=== PATIENT | male | born 1935 | race Hispanic/Latino ===

== ENCOUNTER → 2023-01-29 | Day surgery (SDC) | payer MEDICARE, OTHER ==
[2023-01-22 09:50] LABS: BASOPHILS # (AUTO) 0.1 (0.0-0.1); BASOPHILS % 0.6 % (0.0-1.0); EOSINOPHILS # (AUTO) 0.1 (0.0-0.4); EOSINOPHILS % 1.6 % (0.0-6.0); HEMATOCRIT 42.7 % (38.2-49.6); HEMOGLOBIN 13.8 g/dL (14.0-18.0); LYMPHOCYTES # (AUTO) 1.8 (1.0-3.2); LYMPHOCYTES % 21.5 % (18.0-39.1); MEAN CORPUSCULAR HEMOGLOBIN 30.3 pg (28-32); MEAN CORPUSCULAR HGB CONC 32.3 g/dL (31-35); MEAN CORPUSCULAR VOLUME 93.6 fL (81-99); MONOCYTES # (AUTO) 0.9 (0.2-0.8); MONOCYTES % 10.4 % (4.4-11.3); NEUTROPHILS # (AUTO) 5.4 (2.1-6.9); NEUTROPHILS % 65.5 % (38.7-80.0); PLATELET COUNT 322 x10e3/uL (140-360); RED BLOOD COUNT 4.56 x10e6/uL (4.3-5.7); RED CELL DISTRIBUTION WIDTH 14.2 % (11.7-14.4)
[~2023-01-29] MED LIST: FAMOTIDINE20 MG PO; FINASTERIDE5 MG PO; GABAPENTIN300 MG PO; LACTATED RINGER'S 1,000 ML ONE; METFORMIN HCL500 MG PO; ZENPEP DR 15,01 EACH PO; ZENPEP DR 25,01 EAC1 PO; ZESTRIL10 MG PO
[2023-01-29 08:34] VITALS: TEMP 97
[2023-01-29 09:00] VITALS: BP 131/88; PULSE 83; RESP 18; O2SAT 99
== END | disposition home or self-care (01) ==
LOC: OR 08:21
PROVIDERS: ATTEND Internal Medicine Gastroenterology
DX: K29.50 Unspecified chronic gastritis without bleeding (principal); K51.311 Ulcerative (chronic) rectosigmoiditis with rectal bleeding; K51.211 Ulcerative (chronic) proctitis with rectal bleeding; K31.A11 Gastric intestinal metaplasia without dysplasia, involving the antrum; K55.20 Angiodysplasia of colon without hemorrhage; K44.9 Diaphragmatic hernia without obstruction or gangrene; Z01.810 Encounter for preprocedural cardiovascular examination; Z01.812 Encounter for preprocedural laboratory examination; Z79.84 Long term (current) use of oral hypoglycemic drugs; Z79.899 Other long term (current) drug therapy
CPT/HCPCS: 36415 ×2; 43239; 45380; 82948; 85025; 88305; 88342; 93005; J7121; 45378; 88312